=== PATIENT | female | born 1945 | race African-American/Black ===

== ENCOUNTER 2020-01-02 08:38 | Inpatient (IN) | payer BC, MEDICARE, OTHER ==
[~2020-01-02] VITALS: Ht 162.6 cm; Wt 70.3 kg
[2020-01-02] VITALS (19 sets, daily range): BP systolic 103–154; BP diastolic 60–88
[2020-01-02 09:02] LABS: Basophils # (auto) 0 10 ^3/uL (0-0.2); Basophils % (auto) 0.3 % (0.0-2.0); Eosinophils # (auto) 0 10 ^3/uL (0-0.8); Eosinophils % (auto) 0.2 % (0.0-7.0); Hematocrit 37.6 % (36.0-46.0); Hemoglobin 12.4 g/dL (12.2-16.2); Lymphocytes # (auto) 1.3 10 ^3/uL (0.4-5.4); Lymphocytes % (auto) 20.2 % (10.0-50.0); Mean Corpuscular Hemoglobin 28.9 pg (28.0-32.0); Mean Corpuscular Hgb Conc. 32.9 g/dL (32.0-36.0); Mean Corpuscular Volume 87.9 fL (80.0-100.0); Monocytes # (auto) 0.4 10 ^3/uL (0-1.3); Monocytes % (auto) 5.4 % (0.0-12.0); Neutrophils # (auto) 4.8 10 ^3/uL (1.6-8.6); Neutrophils % (auto) 73.9 % (37.0-80.0); Nucleated Red Blood Cells % 0.1 %; Platelet Count (auto) 213 10^3/uL (140-450); Red Blood Cells 4.28 10^6/uL (4.0-5.20); Red Cell Distribution Width 14.3 % (11.8-14.3); White Blood Cell 6.5 10^3/uL (4.4-10.8)
[2020-01-02 09:18] LABS: INR 0.99 (0.9-1.15); Partial Thromboplastin Time 25.1 sec (23.64-32.05)
[2020-01-02 09:22] LABS: Albumin 3.8 g/dL (3.4-5.0); Calcium 8.8 mg/dL (8.5-10.1); Potassium 3.3 mmol/L (3.5-5.1)
[2020-01-02 09:27] LABS: BUN/Creatinine Ratio 20.7; Bilirubin, Total 0.3 mg/dL (0.2-1.0)
[2020-01-02] MEDS ORDERED: MORPHINE SULF INJ 2 MG/ML SYRINGE 1ML IV ONE (09:30)
[2020-01-02] MEDS ORDERED: ONDANSETRON HCL 4 MG/2 ML VIAL IV ONE (09:30)
[2020-01-02] MEDS ORDERED: ASPirin 81 mg TAB PO ONE (09:30)
[2020-01-02] MEDS ORDERED: ASPirin 81 mg TAB ONE (09:36)
[2020-01-02 10:12] LABS: Urine Bacteria NONE SEEN /hpf (None Seen); Urine Blood Negative /uL (Negative); Urine WBC 2 /hpf (0 - 5)
[2020-01-02] MEDS ORDERED: ENOXAPARIN SOD 60 MG/0.6 ML SYRINGE SC ONE (10:15)
[2020-01-02] MEDS ORDERED: POTASSIUM EFFERVESENT TAB 25 MEQ PO ONE (10:30)
[2020-01-02] MEDS ORDERED: HYDROcodone-ACET 5/325MG TAB PO PRN (11:30)
[2020-01-02] MEDS ORDERED: hydrALAZINE HCL 20 MG/ML VL IV PRN (11:30)
[2020-01-02] MEDS ORDERED: ONDANSETRON HCL 4 MG/2 ML VIAL IV PRN (11:30)
[2020-01-02] MEDS ORDERED: MORPHINE SULF INJ 2 MG/ML SYRINGE 1ML IV PRN ×2 (11:30)
[2020-01-02] MEDS ORDERED: ACETAMINOPHEN 500 MG TAB PO PRN (11:30)
[2020-01-02] MEDS ORDERED: NITROGLYCERIN 0.4 MG SL TAB SL PRN (11:30)
[2020-01-02] MEDS ORDERED: METOPROLOL TARTRATE 25 MG TAB PO ONE ×2 (12:00→13:45)
[2020-01-02] MEDS ORDERED: LISINOPRIL 10 MG TAB PO ONE ×2 (12:00→13:45)
[2020-01-02] MEDS ORDERED: FAMOTIDINE 20 MG TAB PO ONE (12:15)
[2020-01-02 12:39] LABS: CRP High Sensitivity 0.12 mg/dL (< 0.3); Magnesium 2.3 mg/dL (1.6-2.6)
--- NOTE | 2020-01-02 12:40 | NUR ---
RECEIVED REPORT FROM JEM WILL AWAIT PATIENT.
--- NOTE | 2020-01-02 15:38 | NUR ---
RECEIVED CALL FROM DAI IN LAB WITH A CRITICAL TROPONIN 5.31 .LAB VALUE REPORTED TO DR PERALTA AND SHANNAN MELCHOR.
[2020-01-02] MEDS ORDERED: ATOR40TA52 PO (16:40)
[2020-01-02] MEDS ORDERED: ASPI-404 PO (16:40)
[2020-01-02] MEDS ORDERED: PROMETHAZINE HCL 25 MG/ML 1ML IV PRN (18:15)
--- NOTE | 2020-01-02 18:15 | NUR ---
RECEIVED TRANSFER ORDERS FROM [facility] TO [facility] PATIENT SYMPTOMATIC NAUSEA VOMITING AND UPPER GI DISCOMFORT.
[2020-01-02] MEDS ORDERED: HEPARIN DRIP/D5W 100UNITS/ML 250 ML IV SCH (18:20)
[2020-01-02] MEDS ORDERED: HEPARIN SODIUM (PORCINE) 5000 UNITS/ML 1ML VIAL IV ONE (18:30)
[2020-01-02] MEDS ORDERED: NITROGLYCERIN 50MG/250ML 250 ML IV SCH (18:30)
--- NOTE | 2020-01-02 18:35 | NUR ---
CALLED REPORT TO THAI
[2020-01-02 18:45] LABS: Basophils # (auto) 0 10 ^3/uL (0-0.2); Basophils % (auto) 0.3 % (0.0-2.0); Eosinophils # (auto) 0 10 ^3/uL (0-0.8); Hemoglobin 12.3 g/dL (12.2-16.2); Lymphocytes # (auto) 0.9 10 ^3/uL (0.4-5.4); Lymphocytes % (auto) 15.4 % (10.0-50.0); Mean Corpuscular Hemoglobin 29.5 pg (28.0-32.0); Mean Corpuscular Hgb Conc. 33.3 g/dL (32.0-36.0); Mean Corpuscular Volume 88.5 fL (80.0-100.0); Monocytes # (auto) 0.3 10 ^3/uL (0-1.3); Monocytes % (auto) 4.9 % (0.0-12.0); Neutrophils # (auto) 4.7 10 ^3/uL (1.6-8.6); Neutrophils % (auto) 79.4 % (37.0-80.0); Nucleated Red Blood Cells % 0.1 %; Platelet Count (auto) 226 10^3/uL (140-450); Red Blood Cells 4.18 10^6/uL (4.0-5.20); Red Cell Distribution Width 14.1 % (11.8-14.3)
--- NOTE | 2020-01-02 18:53 | NUR ---
PATIENT TRANSFERRED TO [facility]
--- NOTE | 2020-01-02 18:55 | NUR ---
OPEN: RECEIVED PATIENT FROM TELE RECEIVED REPORT FROM ADELITA GOMEZ. ASSUMED CARE OF [facility] PATIENT, FULL CODE STATUS. PATIENT A & O X4, CALM AND FOLLOWS COMMANDS AT THIS TIME. PATIENT PLACED ON BEDSIDE MONITOR. V/S FOLLOWED: HR [address], OCCASIONAL PVC'S. BP 130/82, RR 22, SATS 97% ON ROOM AIR, NO SOB AT THIS TIME. MRSA SWAB OF FARZANA NARES TAKEN, TO BE SENT TO LAB. CURRENT WT. 70 KG PER BED SCALE. REPORT TO BE GIVEN TO KY RAMIREZ RN. TRANSFER CARE.
[2020-01-02 19:02] LABS: INR 1.03 (0.9-1.15); Partial Thromboplastin Time 28.2 sec (23.64-32.05)
--- NOTE | 2020-01-02 19:40 | NUR ---
TRIDIL GTT STARTED PER N.P SALBINO'S ORDERS CURRENT V/S FOLLOWED. HR 75, BP 133/76, HR 75, SR. CONTINUE CARE. SET RATE AT 10 MCG/MIN. REPORT GIVEN TO ADELITA MCPHERSON. TRANSFER CARE.
--- NOTE | 2020-01-02 19:40 | NUR ---
HEPARIN GTT HEPARIN STARTED PER MD ORDER. BOLUS GIVEN PER ORDER ADELITA ANDRE AT BEDSIDE TO VERIFY ORDERS, DOSAGES, AND RATE FOR GTT. PHARMACY CALLED TO VERIFY RATE AT 8.5 ML/HR AND 850 UNITS.
[2020-01-02] MEDS: METOPROLOL TARTRATE 25 MG TAB PO SCH (22:00)
[2020-01-02] MEDS ORDERED: ENOXAPARIN SOD 60 MG/0.6 ML SYRINGE SC SCH (22:00)
[2020-01-02] MEDS: ATORVASTATIN 20 MG TAB PO SCH (22:28)
--- NOTE | 2020-01-02 22:30 | NUR ---
BETA RAYNA NON ADMIN HR IS 60 AND BP IS STABLE AND WNL AT THIS TIME. PT ON NITRO GTT.
[2020-01-03] VITALS (36 sets, daily range): BP systolic 96–160; BP diastolic 55–87
[2020-01-03] MEDS ORDERED: SODIUM CHLORIDE 0.9% 1,000 ML IV ONE (00:01)
--- NOTE | 2020-01-03 00:10 | NUR ---
IV INSERTION INSERTED 22 G TO RIGHT WRIST USING CLEAN TECHNIQUE. PT TOLERATED WELL WITH NO COMPLAINTS. EDUCATED PT ON IV AND SHE VERBALIZED UNDERSTANDING.
--- NOTE | 2020-01-03 00:15 | NUR ---
CONSENTS OBTAINED FOR HEART CATH. ALL QUESTIONS AND CONCERNS WITHIN RN SCOPE ADDRESSED. PT VERBALIZES UNDERSTANDING OF PLAN OF CARE. PT NPO FOR THE REST OF THE NIGHT.
--- NOTE | 2020-01-03 00:15 | NUR ---
PT PLACED ON 2L NC. SATS 92%.
--- NOTE | 2020-01-03 00:45 | NUR ---
APTT/HEPARIN GTT LATEST APTT 58.6. NO CHANGE AND NO BOLUS TO HEPARIN GTT AT THIS TIME.
[2020-01-03 00:59] LABS: BUN/Creatinine Ratio 13.6; Calcium 8.8 mg/dL (8.5-10.1); Potassium 4.2 mmol/L (3.5-5.1)
[2020-01-03 01:00] LABS: INR 1.07 (0.9-1.15); Partial Thromboplastin Time 58.6 sec (23.64-32.05)
--- NOTE | 2020-01-03 01:30 | NUR ---
CRITICAL TROPS TROPS NOW AT 80. MDS HAVE BEEN AWARE OF TROPS TRENDING UPWARDS. PT IS SCHEDULED FOR CIRCUS AGENT IN THE MORNING. NO ST ELEVATION OR CHEST PAIN COMPLAINS AT THIS TIME. PT REMAINS ON NITRO AN HEPARIN GTTS PER ORDERS.
--- NOTE | 2020-01-03 03:21 | NUR ---
12 LEAD DID PRE-PROCEDURAL 12 LEAD EKG. PT STATES SHE HAS NO CHEST PAIN. [address] ELEVATION. PLACED IN HARD CHART.
--- NOTE | 2020-01-03 05:50 | NUR ---
LAB AT BEDSIDE TO DRAW AM LABS
[2020-01-03 06:20] LABS: Basophils # (auto) 0 10 ^3/uL (0-0.2); Basophils % (auto) 0.3 % (0.0-2.0); Eosinophils # (auto) 0 10 ^3/uL (0-0.8); Eosinophils % (auto) 0.3 % (0.0-7.0); Hemoglobin 11.3 g/dL (12.2-16.2); Lymphocytes # (auto) 2.6 10 ^3/uL (0.4-5.4); Lymphocytes % (auto) 34.7 % (10.0-50.0); Mean Corpuscular Hemoglobin 29.3 pg (28.0-32.0); Mean Corpuscular Hgb Conc. 33.2 g/dL (32.0-36.0); Mean Corpuscular Volume 88.4 fL (80.0-100.0); Monocytes # (auto) 0.7 10 ^3/uL (0-1.3); Monocytes % (auto) 10.1 % (0.0-12.0); Neutrophils % (auto) 54.6 % (37.0-80.0); Nucleated Red Blood Cells % 0.1 %; Platelet Count (auto) 201 10^3/uL (140-450); Red Blood Cells 3.85 10^6/uL (4.0-5.20); Red Cell Distribution Width 14.3 % (11.8-14.3); White Blood Cell 7.4 10^3/uL (4.4-10.8)
[2020-01-03 06:36] LABS: Calcium 8.7 mg/dL (8.5-10.1); Potassium 3.9 mmol/L (3.5-5.1)
[2020-01-03 06:39] LABS: BUN/Creatinine Ratio 13.8
[2020-01-03 06:40] LABS: INR 1.07 (0.9-1.15); Partial Thromboplastin Time 53.4 sec (23.64-32.05)
--- NOTE | 2020-01-03 06:45 | NUR ---
PT VOIDED ON BEDSIDE COMMODE. 150 ML OF YELLOW, STRONG SMELLING URINE.
--- NOTE | 2020-01-03 06:53 | NUR ---
CHG BATH GIVEN TO LOWER EXTREMITIES AND GROIN AREA.
--- NOTE | 2020-01-03 06:56 | NUR ---
HEPARIN GTT STOPPED AT 06:56 PER GARRISON MORALEZ NP. PT GOING TO DOPE EDGER TODAY. LAST APTT-53.4.
--- NOTE | 2020-01-03 07:45 | NUR ---
OPENING SHIFT NOTE: Received report from NOC RN, Julisa. Assumed care of patient. Received patient connected to bedside monitor, no s/s of distress noted. Patient is A&Ox4, denies pain. Patient is NPO for medical lab assistant with Dr Nagel. Patient is on 2L NC with O2 sats >95%. Patient with nitroglycerin gtt infusing at 10mcg/hr in to Rt AC #20 and Rt hand #22 that is patent and intact. Bed is in lowest position, rails x2 up and call light within reach. Updated on plan of care. Will continue to monitor q1hr/PRN.
--- NOTE | 2020-01-03 08:00 | NUR ---
MD: Rosi Ludwig, DATA VIRTUALIZATION CONSULTANT cardiology at bedside to see patient.
[2020-01-03] MEDS: LISINOPRIL 10 MG TAB PO SCH (10:00)
[2020-01-03] MEDS ORDERED: FAMOTIDINE 20 MG TAB PO SCH (10:00)
[2020-01-03] MEDS: METOPROLOL TARTRATE 25 MG TAB PO SCH ×2 (10:00→21:31)
[2020-01-03] MEDS: ASPirin-EC 81 mg tab PO SCH (10:00)
--- NOTE | 2020-01-03 11:00 | NUR ---
MD: Dr Cardona at bedside to see patient.
--- NOTE | 2020-01-03 12:00 | NUR ---
Patient taken to cathlab via bed connected to portable cardiac cath lab technologist. SBAR given to ADELITA Juares.
[2020-01-03] MEDS ORDERED: MIDAZOLAM HCL 1MG/1ML-2 ML VIAL ONE (12:02)
[2020-01-03] MEDS ORDERED: ANGIOMAX 250 MG VIAL IV ONE (12:02)
[2020-01-03] MEDS ORDERED: LIDOCAINE 2%HCL (LOCAL ANESTH.) INJ 20ML MDV ONE (12:02)
[2020-01-03] MEDS ORDERED: fentaNYL CITRATE 100 MCG/2 ML VL ONE (12:02)
[2020-01-03] MEDS ORDERED: SODIUM CHL 0.9% 50 ML ONE (12:02)
[2020-01-03] MEDS ORDERED: IOHEXOL 350 MG/ML 100ML IJ ONE ×2 (12:03→13:48)
[2020-01-03] MEDS ORDERED: VERAPAMIL 2.5MG/ML INJ 2ML VIAL IV ONE (12:08)
[2020-01-03] MEDS ORDERED: HEPARIN SODIUM (PORCINE) 5000 UNITS/ML 1ML VIAL ONE (12:08)
[2020-01-03] MEDS ORDERED: CLOPIDOGREL 300 MG TAB ONE ×2 (13:58→14:07)
[2020-01-03] MEDS ORDERED: ASPirin 325 MG TAB ONE (14:05)
--- NOTE | 2020-01-03 14:20 | NUR ---
Pt transported to [facility] 266 via bed in supine position with nurse practical and ACLS guidelines in place in stable condition s/p heart catheterization with . Pt AAOx4 with respirations even and unlabored with NAD noted. Pt denies pain at this time. Vasc band noted to right wrist with no active bleeding noted. Closure device noted to right groin, with dressing c,d,i. Pulse,motor,sensation and cap refill intact to RUE.Bedside report given to Lubna UREÑA.
--- NOTE | 2020-01-03 14:22 | NUR ---
Report to Lubna UREÑA. Pt taken to [facility] on monitor with 2 RNs. Pt groin checked with PCN and no signs of bleeding. Groin and wrist benign.
--- NOTE | 2020-01-03 14:30 | NUR ---
Patient returned from fence laborer. Right wrist and right groins checked with fence laborer RN.
--- NOTE | 2020-01-03 15:15 | NUR ---
Patient found trying to get out of bed. Reeducated about importance of lying flat due to access site to right groin. Patient reinforced to use call light and not to do things on her own. Patient found to be bleeding to right wrist vas band site. Attempted to inflate with more air, but noted vas band was no longer covering insertion site. Removed vas band and applied direct pressure with sterile gauze and reapplied vas band and inflated to 20ml air. Will continue to monitor. Bed alarm set.
--- NOTE | 2020-01-03 15:45 | NUR ---
No bleeding noted at vas band site. Deflated by 2ml.
[2020-01-03] MEDS ORDERED: NITROGLYCERIN 50MG/250ML 250 ML IV SCH (16:00)
--- NOTE | 2020-01-03 16:30 | NUR ---
Right groin site remain C/D/I, soft and non tender. Raised patient's HOB to 30 degrees.
--- NOTE | 2020-01-03 17:24 | NUR ---
Received report from ADELITA Lamb. Awaiting patient arrival.
--- NOTE | 2020-01-03 17:24 | NUR ---
Report given to ADELITA Locke. Patient to be transferred to [address] once tele box received.
--- NOTE | 2020-01-03 17:55 | NUR ---
[facility] pt transferred to floor SHEREE DOSHI transferred to [address] via gurney on hall monitor. All patient medications and personal belongings transferred with patient to receiving floor. Patient is AOx4, no S/S of distress noted. Oriented patient to room, plan of care and call light. Patient verbalized understanding.
--- NOTE | 2020-01-03 18:00 | NUR ---
Elevated Temperature Patient has an elevated temp of 99.3. Provided cooling measures, I will continue to monitor Q1HR and PRN.
--- NOTE | 2020-01-03 18:38 | NUR ---
Received critical lab Received call from Krista from Hematology regarding a troponin level of 25.8. Levels are trending down.
--- NOTE | 2020-01-03 19:15 | NUR ---
End of shift note Endorsed care of patient to NOC ADELITA Tipton. No s/s of distress noted at this time.
--- NOTE | 2020-01-03 19:32 | NUR ---
Opening Shift Note Received report and assumed care of patient. Patient is awake and alert. No signs or symptoms of distress noted. Instructed patient on plan of care and to call for assistance as needed. Right groin dressing clean, dry and intact. Will continue to monitor.
[2020-01-03] MEDS: ATORVASTATIN 20 MG TAB PO SCH (21:31)
[2020-01-04 05:00] VITALS: BP 132/73
[2020-01-04 05:40] LABS: Basophils # (auto) 0 10 ^3/uL (0-0.2); Basophils % (auto) 0.3 % (0.0-2.0); Eosinophils # (auto) 0 10 ^3/uL (0-0.8); Eosinophils % (auto) 0.4 % (0.0-7.0); Hematocrit 37.1 % (36.0-46.0); Hemoglobin 12.5 g/dL (12.2-16.2); Lymphocytes # (auto) 1.5 10 ^3/uL (0.4-5.4); Mean Corpuscular Hemoglobin 29.4 pg (28.0-32.0); Mean Corpuscular Hgb Conc. 33.6 g/dL (32.0-36.0); Mean Corpuscular Volume 87.7 fL (80.0-100.0); Monocytes # (auto) 0.6 10 ^3/uL (0-1.3); Monocytes % (auto) 8.8 % (0.0-12.0); Neutrophils # (auto) 4.2 10 ^3/uL (1.6-8.6); Neutrophils % (auto) 66.5 % (37.0-80.0); Platelet Count (auto) 201 10^3/uL (140-450); Red Blood Cells 4.23 10^6/uL (4.0-5.20); White Blood Cell 6.4 10^3/uL (4.4-10.8)
[2020-01-04 06:08] LABS: Potassium 3.8 mmol/L (3.5-5.1)
[2020-01-04 06:13] LABS: BUN/Creatinine Ratio 15.2
[2020-01-04 08:00] VITALS: BP 111/73
--- NOTE | 2020-01-04 08:15 | NUR ---
Opening Shift Note Assumed care of patient, awake, alert, and oriented. No S/S of distress/SOB or pain. Bed in lowest/locked position, bed rails up x2, call light within reach. Instructed on POC and to call for assist PRN. Will continue to monitor for changes Q1hr and PRN.
[2020-01-04] MEDS: ASPirin-EC 81 mg tab PO SCH (08:50)
[2020-01-04] MEDS: LISINOPRIL 10 MG TAB PO SCH (08:51)
[2020-01-04] MEDS: METOPROLOL TARTRATE 25 MG TAB PO SCH (08:51)
[2020-01-04] MEDS ORDERED: CLOPIDOGREL BISULFATE 75 MG TAB PO SCH (10:00)
[2020-01-04 12:00] VITALS: BP 103/67
--- NOTE | 2020-01-04 14:55 | NUR ---
Discharge instructions given as ordered. Encourage to follow up with PMD as instructed. All questions and concerns addressed. Patient verbalized understanding. IV removed with catheter intact, pressure dressing applied. Telemetry unit returned to ICU. Patient taken to vehicle via wheelchair with all personal belongings, accompanied by staff and family member. No distress noted at time of departure.
--- NOTE | 2020-01-05 08:00 | NUR ---
D/C Planning Per SS consult for home health safety evaluation. Faxed clinical information to [facility]. Per Radha with [facility] patient has been accepted and service to start within 24-48hrs upon d/c day.
== END 2020-01-04 14:53 | disposition home or self-care (01) | DRG 247 ==
LOC: ER 08:38 → TELE 08:39 → TELE-WESTW 13:15 → DOU IN ICU 18:50 → TELE-WESTW 01-03 18:01
PROVIDERS: ADMIT Nurse Practitioner Acute Care; ATTEND Hospitalist
PROC: 027034Z Dilation of Coronary Artery, One Artery with Drug-eluting Intraluminal Device, Percutaneous Approach (ICD-10-PCS; principal; 2020-01-03)
PROC: 4A023N7 Measurement of Cardiac Sampling and Pressure, Left Heart, Percutaneous Approach (ICD-10-PCS; 2020-01-03)
PROC: B2111ZZ Fluoroscopy of Multiple Coronary Arteries using Low Osmolar Contrast (ICD-10-PCS; 2020-01-03)
PROC: B2151ZZ Fluoroscopy of Left Heart using Low Osmolar Contrast (ICD-10-PCS; 2020-01-03)
DX: I21.4 Non-ST elevation (NSTEMI) myocardial infarction (principal); E87.1 Hypo-osmolality and hyponatremia; E87.6 Hypokalemia; R73.9 Hyperglycemia, unspecified; I10 Essential (primary) hypertension; E78.5 Hyperlipidemia, unspecified; Z86.73 Personal history of transient ischemic attack (TIA), and cerebral infarction without residual deficits; I25.10 Atherosclerotic heart disease of native coronary artery without angina pectoris; F03.90 Unspecified dementia, unspecified severity, without behavioral disturbance, psychotic disturbance, mood disturbance, and anxiety; Z88.0 Allergy status to penicillin; Z79.82 Long term (current) use of aspirin
CPT/HCPCS: 36415; 71045; 80048; 80053; 80061; 81001; 83735; 84443; 84484; 85025; 85610; 85730; 86141; 86850; 86900; 86901; 87081; 92928; 93005; 93306; 93458; 96372; 96374; 96375; 99152; 99153; C1874; C1887; G0378; J2250; J2405

== ENCOUNTER 2020-01-12 14:42 | Inpatient (IN) | payer BC ==
[~2020-01-12] VITALS: Ht 165.1 cm; Wt 67.5 kg
[~2020-01-12 14:42] MED LIST: ASPI-404 PO; ATOR40TA52 PO
[2020-01-12] MEDS ORDERED: ONDANSETRON HCL 4 MG/2 ML VIAL IV ONE (15:00)
[2020-01-12] MEDS ORDERED: ASPirin 81 mg TAB PO ONE (15:00)
[2020-01-12] MEDS ORDERED: MORPHINE SULFATE 4 MG/ML SYR/VIAL IV ONE (15:00)
[2020-01-12 15:34] LABS: Basophils # (auto) 0 10 ^3/uL (0-0.2); Basophils % (auto) 0.2 % (0.0-2.0); Eosinophils # (auto) 0.1 10 ^3/uL (0-0.8); Hematocrit 34.9 % (36.0-46.0); Hemoglobin 11.6 g/dL (12.2-16.2); Lymphocytes # (auto) 1.1 10 ^3/uL (0.4-5.4); Lymphocytes % (auto) 12.4 % (10.0-50.0); Mean Corpuscular Hemoglobin 29.4 pg (28.0-32.0); Mean Corpuscular Hgb Conc. 33.1 g/dL (32.0-36.0); Mean Corpuscular Volume 88.9 fL (80.0-100.0); Monocytes # (auto) 0.7 10 ^3/uL (0-1.3); Monocytes % (auto) 7.5 % (0.0-12.0); Neutrophils % (auto) 78.9 % (37.0-80.0); Nucleated Red Blood Cells % 0.1 %; Platelet Count (auto) 242 10^3/uL (140-450); Red Blood Cells 3.93 10^6/uL (4.0-5.20); Red Cell Distribution Width 13.9 % (11.8-14.3); White Blood Cell 8.9 10^3/uL (4.4-10.8)
[2020-01-12 15:48] LABS: INR 1.03 (0.9-1.15); Partial Thromboplastin Time 26.5 sec (23.64-32.05)
[2020-01-12 15:54] LABS: Potassium 3.9 mmol/L (3.5-5.1)
[2020-01-12 15:58] LABS: Albumin 3.2 g/dL (3.4-5.0); Calcium 8.1 mg/dL (8.5-10.1)
[2020-01-12 16:03] LABS: Bilirubin, Total 0.5 mg/dL (0.2-1.0); Total Protein 7.2 g/dL (6.4-8.2)
[2020-01-12] MEDS ORDERED: NITROGLYCERIN 0.4 MG SL TAB SL ONE (16:30)
[2020-01-12] MEDS ORDERED: ENOXAPARIN SOD 80 MG/0.8ML SYRINGE SC ONE ×2 (16:30→20:00)
[2020-01-12] MEDS ORDERED: MORPHINE SULF INJ 2 MG/ML SYRINGE 1ML IV PRN (19:30)
[2020-01-12] MEDS ORDERED: NITROGLYCERIN 0.4 MG SL TAB SL PRN (19:30)
[2020-01-12] MEDS ORDERED: SODIUM CHLORIDE 0.9% 500 ML IV ONE (20:15)
[2020-01-12] MEDS ORDERED: ATORVASTATIN 20 MG TAB PO SCH (22:00)
[2020-01-12] MEDS: CARVEDILOL 3.125 MG TAB PO SCH (22:48)
[2020-01-12] MEDS ORDERED: CLOP75TA41 PO (22:58)
[2020-01-12] MEDS ORDERED: METO25TA5 PO (22:58)
[2020-01-12] MEDS ORDERED: LISI10TA6 PO (22:58)
[2020-01-12 23:06] VITALS: BP 121/56
[2020-01-13 05:19] VITALS: BP 111/57
[2020-01-13 07:35] LABS: Bilirubin, Direct 0.5 mg/dL (0-0.2); Bilirubin, Total 1.2 mg/dL (0.2-1.0); Total Protein 6.9 g/dL (6.4-8.2)
[2020-01-13 09:00] VITALS: BP 108/63
[2020-01-13] MEDS: CARVEDILOL 3.125 MG TAB PO SCH (09:18)
[2020-01-13] MEDS ORDERED: CLOPIDOGREL BISULFATE 75 MG TAB PO SCH (10:00)
[2020-01-13] MEDS ORDERED: ENOXAPARIN SOD 60 MG/0.6 ML SYRINGE SC SCH (10:00)
[2020-01-13] MEDS ORDERED: ASPirin-EC 81 mg tab PO SCH (10:00)
[2020-01-13 13:00] VITALS: BP 107/62
[2020-01-13] MEDS ORDERED: LIDOCAINE 2%HCL (LOCAL ANESTH.) INJ 20ML MDV ONE (13:30)
[2020-01-13] MEDS ORDERED: fentaNYL CITRATE 100 MCG/2 ML VL ONE (13:30)
[2020-01-13] MEDS ORDERED: ANGIOMAX 250 MG VIAL IV ONE (13:30)
[2020-01-13] MEDS ORDERED: MIDAZOLAM HCL 1MG/1ML-2 ML VIAL ONE (13:30)
[2020-01-13] MEDS ORDERED: SODIUM CHL 0.9% 0 ML ONE (13:31)
[2020-01-13] MEDS ORDERED: IODIXANOL 320MG/ML 100ML BTL IV ONE (13:31)
[2020-01-13] MEDS ORDERED: CLOPIDOGREL 300 MG TAB ONE (14:07)
[2020-01-13] MEDS ORDERED: METO25TA5 PO (16:59)
[2020-01-13] MEDS ORDERED: ASPI-404 PO (16:59)
[2020-01-13] MEDS ORDERED: ATOR40TA52 PO (16:59)
[2020-01-13] MEDS ORDERED: CLOP75TA41 PO (16:59)
[2020-01-13] MEDS ORDERED: LISI10TA6 PO (16:59)
[2020-01-13 17:00] VITALS: BP 121/60
[2020-01-13 17:11] VITALS: BP 121/60
[2020-01-13] MEDS ORDERED: LISINOPRIL 5 MG TAB PO SCH (18:00)
== END 2020-01-13 18:00 | disposition home or self-care (01) | DRG 287 ==
LOC: EDBD 14:42 → ER 14:42 → TELE 14:43 → TELE-EAST 22:00
PROVIDERS: ADMIT Hospitalist; ATTEND Hospitalist
PROC: 4A023N7 Measurement of Cardiac Sampling and Pressure, Left Heart, Percutaneous Approach (ICD-10-PCS; principal; 2020-01-13)
PROC: B2111ZZ Fluoroscopy of Multiple Coronary Arteries using Low Osmolar Contrast (ICD-10-PCS; 2020-01-13)
PROC: B2151ZZ Fluoroscopy of Left Heart using Low Osmolar Contrast (ICD-10-PCS; 2020-01-13)
PROC: 4A033BC Measurement of Arterial Pressure, Coronary, Percutaneous Approach (ICD-10-PCS; 2020-01-13)
DX: I25.119 Atherosclerotic heart disease of native coronary artery with unspecified angina pectoris (principal); E44.1 Mild protein-calorie malnutrition; E78.5 Hyperlipidemia, unspecified; I10 Essential (primary) hypertension; F03.90 Unspecified dementia, unspecified severity, without behavioral disturbance, psychotic disturbance, mood disturbance, and anxiety; Z88.0 Allergy status to penicillin; Z79.899 Other long term (current) drug therapy; Z79.82 Long term (current) use of aspirin; I25.2 Old myocardial infarction; Z95.5 Presence of coronary angioplasty implant and graft; Z82.49 Family history of ischemic heart disease and other diseases of the circulatory system; Z68.24 Body mass index [BMI] 24.0-24.9, adult
CPT/HCPCS: 36415; 71045; 80053; 80076; 82962; 84484; 85025; 85610; 85730; 87081; 93005; 93458; G0378; J2250; J2405; Q9967